=== PATIENT | female | born 1955 | race Two or more races ===

== ENCOUNTER → 2022-05-29 | Day surgery (SDC) | payer OTHER | END | disposition home or self-care (01) | LOC: ADM 05-26 13:45 → AMB-ENDOS 05:42 → EDBD 13:45 → AMB-ENDOS 13:45 | PROVIDERS: ATTEND Surgery | DX: D12.0 Benign neoplasm of cecum (principal); Z20.822 Contact with and (suspected) exposure to COVID-19; Z88.2 Allergy status to sulfonamides; K66.0 Peritoneal adhesions (postprocedural) (postinfection); Z86.010 Personal history of colon polyps ==